=== PATIENT | male | born 1965 ===

== ENCOUNTER 2022-10-13 05:54 | Day surgery (SDC) | payer OTHER ==
[~2022-10-13 05:54] MED LIST: VASOTEC2.5 MG PO
== END 2022-10-13 13:40 | disposition home or self-care (01) ==
LOC: CIR.AMB 05:54
PROVIDERS: ATTEND Surgery Surgery of the Hand
DX: M65.841 Other synovitis and tenosynovitis, right hand (principal); M67.843 Other specified disorders of tendon, right hand; Z20.822 Contact with and (suspected) exposure to COVID-19; I10 Essential (primary) hypertension; Z88.6 Allergy status to analgesic agent